=== PATIENT | male | born 1975 | race Caucasian/White ===

== ENCOUNTER 2019-12-05 08:18 | Emergency (ER) | payer OTHER ==
[~2019-12-05] VITALS: Ht 185.4 cm; Wt 106.4 kg
[2019-12-05 08:28] VITALS: BP 130/81
--- NOTE | 2019-12-05 08:42 | NUR ---
44 y/o MALE PRESENTS TO ED WITH C/O LOWER LEFT LEG PAIN. PER PT "I WENT TO [facility] LAST THURSDAY. I GOT AN ULTRA SOUND AND IT WAS NEGATIVE. THEY GAVE ME A DIURETIC. I DON'T THINK IT HAS HELPED. MAYBE A LITTLE, BUT IT'S STILL RED." NO ACUTE DISTRESS NOTED. PT RESTING ON [facility].
[2019-12-05] MEDS ORDERED: CLINDAMYCIN 300 MG CAPSULE PO ONE (09:00)
[2019-12-05] MEDS ORDERED: KETOROLAC 30 MG/1 ML IM ONE (09:00)
[2019-12-05] MEDS ORDERED: CEFTRIAXONE PMX 1GM/50ML 50 ML IV ONE (09:00)
--- NOTE | 2019-12-05 09:17 | NUR ---
[facility]ACI ESTABLISHED. LABS OBTAINED.
[2019-12-05] MEDS ORDERED: CLINDAMYCIN 300 MG CAPSULE ONE (09:20)
[2019-12-05] MEDS ORDERED: KETOROLAC 30 MG/1 ML ONE (09:20)
[2019-12-05] MEDS ORDERED: CEFTRIAXONE PMX 1GM/50ML 50 ML ONE (09:20)
[2019-12-05 09:28] LABS: BASOPHILS # (AUTO) 0.04 x10^3/uL (0-0.1); BASOPHILS % (AUTO) 1 % (0-1); EOSINOPHILS # (AUTO) 0.14 x10^3/uL (0-0.4); EOSINOPHILS % (AUTO) 2 % (1-7); LYMPHOCYTES # (AUTO) 1.23 x10^3/uL (1-3.4); LYMPHOCYTES % (AUTO) 18 % (22-44); MD NO; MEAN CORPUSCULAR HEMOGLOBIN 34.6 pg (27.5-34.5); MEAN CORPUSCULAR HGB CONC 34.2 g/dL (33.2-36.2); MEAN CORPUSCULAR VOLUME 101.4 fL (81-97); MEAN PLATELET VOLUME 8.9 fL (7.4-10.4); MONOCYTES # (AUTO) 0.76 x10^3/uL (0.2-0.8); MONOCYTES % (AUTO) 11 % (2-9); NEUTROPHILS # (AUTO) 4.84 x10^3/uL (1.8-6.8); NEUTROPHILS % (AUTO) 69 % (42-75); PLATELET COUNT 216 x10^3/uL (130-400); RED BLOOD COUNT 5.13 x10^6/uL (4.38-5.82); RED CELL DISTRIBUTION WIDTH 14.1 % (9.4-14.8)
[2019-12-05] MEDS ORDERED: KETOROLAC 30 MG/1 ML IVPush ONE (10:00)
--- NOTE | 2019-12-05 10:05 | NUR ---
PT RESTING COMFORTABLY ON GURNEY. NADN. IV ABX INFUSING. NO OTHER NEEDS REQUESTED AT THIS TIME.
--- NOTE | 2019-12-05 10:54 | NUR ---
LATE ENTRY FOR 1030 Patient/Caregiver given discharge instructions and they have confirmed that they understand the instructions. Patient ambulatory with steady gait. PT LEFT WITH ALL PERSONAL BELONGINGS.
== END 2019-12-05 10:56 | disposition home or self-care (01) ==
LOC: ED 08:45
DX: L03.116 Cellulitis of left lower limb (principal)
CPT/HCPCS: 36415; 85025; 93971; 96365; 96375; 99284; J0696; J1885